=== PATIENT | female | born 1960 | race Caucasian/White ===

== ENCOUNTER 2017-05-31 14:15 | Emergency (ER) | payer OTHER ==
[~2017-05-31] VITALS: Ht 175.3 cm; Wt 122.5 kg
[~2017-05-31 14:15] MED LIST: AMLODIPINE BESYL5 MG; COZAAR100 MG; FOLIC + B12 TAB1 TAB; GILTUSS LIQUID237 M1 PO; HEMATRON P.O.1 UDTAB; IMODIUM A-D2 MG PO; IRON1TAB4 PO; SINGULAIR 10MG10 MG; ZOFRAN4 MG PO
== END 2017-05-31 16:34 | disposition home or self-care (01) ==
LOC: ER 14:15
DX: G89.11 Acute pain due to trauma (principal); M25.562 Pain in left knee; M94.0 Chondrocostal junction syndrome [Tietze]

== ENCOUNTER 2018-12-08 21:25 | Emergency (ER) | payer OTHER ==
[~2018-12-08] VITALS: Ht 172.7 cm; Wt 113.4 kg
== END 2018-12-09 02:16 | disposition home or self-care (01) ==
LOC: ER 21:25
DX: L02.412 Cutaneous abscess of left axilla (principal)

== ENCOUNTER 2019-01-18 09:19 | Inpatient (IN) | payer OTHER ==
[~2019-01-18] VITALS: Ht 172.7 cm; Wt 115.7 kg
[2019-01-18] MEDS ORDERED: DOLOGESIC 500-1 EACH (09:21)
[2019-01-18] MEDS ORDERED: ALENDRONATE SODI5 MG (09:22)
[2019-01-23] MEDS ORDERED: INTEGRA F CAPS1 EACH PO (10:31)
[2019-01-23] MEDS ORDERED: XARELTO10 MG PO (10:32)
== END 2019-01-23 17:34 | disposition home or self-care (01) | DRG 481 ==
LOC: ER 09:19 → SURH 17:29
PROVIDERS: Orthopaedic Surgery; ADMIT Internal Medicine
PROC: 3E0F7GC Introduction of Other Therapeutic Substance into Respiratory Tract, Via Natural or Artificial Opening (ICD-10-PCS; 2019-01-18)
PROC: 0QS706Z Reposition Left Upper Femur with Intramedullary Internal Fixation Device, Open Approach (ICD-10-PCS; principal; 2019-01-21 10:30)
DX: S72.22XA Displaced subtrochanteric fracture of left femur, initial encounter for closed fracture (principal); S52.592A Other fractures of lower end of left radius, initial encounter for closed fracture; M97.12XA Periprosthetic fracture around internal prosthetic left knee joint, initial encounter; J45.41 Moderate persistent asthma with (acute) exacerbation; D62 Acute posthemorrhagic anemia; M70.62 Trochanteric bursitis, left hip; E66.09 Other obesity due to excess calories; I10 Essential (primary) hypertension; Z88.0 Allergy status to penicillin; Z88.6 Allergy status to analgesic agent

== ENCOUNTER 2019-03-13 10:00 | Outpatient (CLI) | payer OTHER ==
[~2019-03-13 10:00] MED LIST changes: +ALENDRONATE SODI5 MG; +DOLOGESIC 500-1 EACH; +INTEGRA F CAPS1 EACH PO; +XARELTO10 MG PO
== END 2019-03-13 10:02 | disposition home or self-care (01) ==
LOC: RAD 10:00
DX: M25.552 Pain in left hip (principal); M25.532 Pain in left wrist

== ENCOUNTER 2019-04-10 14:10 | Outpatient (CLI) | payer OTHER | END 2019-04-10 14:51 | disposition home or self-care (01) | LOC: RAD 14:10 | DX: S72.22XD Displaced subtrochanteric fracture of left femur, subsequent encounter for closed fracture with routine healing (principal); M25.561 Pain in right knee ==

== ENCOUNTER 2019-05-08 15:23 | Outpatient (CLI) | payer OTHER | END 2019-05-08 15:25 | disposition home or self-care (01) | LOC: RAD 15:23 | DX: S72.22XD Displaced subtrochanteric fracture of left femur, subsequent encounter for closed fracture with routine healing (principal) ==